=== PATIENT | male | born 1995 | race Two or more races ===

== ENCOUNTER 2024-03-03 14:13 | Emergency (ER) | payer OTHER ==
[~2024-03-03] VITALS: Ht 170.2 cm; Wt 65.5 kg
[2024-03-03 14:45] VITALS: BP 130/88; PULSE 62; RESP 18; TEMP 98.9; O2SAT 100
== END 2024-03-03 15:44 | disposition home or self-care (01) ==
LOC: ER 14:18
DX: S16.1XXA Strain of muscle, fascia and tendon at neck level, initial encounter (principal); V43.52XA Car driver injured in collision with other type car in traffic accident, initial encounter; Y93.I9 Activity, other involving external motion; Y92.89 Other specified places as the place of occurrence of the external cause; Y99.8 Other external cause status
CPT/HCPCS: 72040